=== PATIENT | male | born 1995 | race Caucasian/White ===

== ENCOUNTER 2018-08-11 12:00 | Emergency (ER) | payer OTHER ==
--- NOTE | 2018-08-11 12:24 | EDPHY ---
H & P Stated Complaint: Right testcular pain, radiating to lower abdomen Time Seen by Provider: 08/11/18 12:11 HPI/ROS: Chief Complaint: Testicle pain HPI: 23-year-old male's presenting with right testicle pain which began last night. He has noticed some moderate tenderness in the upper testicle. No swelling. No redness. He has had similar episodes in the past and was diagnosed with either hydrocele or varicocele, he cannot recall which. No swelling. No history of sexually transmitted infections in the past. Was tested for STIs 3 months ago was negative. No urethral discharge. No rash. No abdominal pain. No nausea or vomiting. Does state that he has been constipated and straining quite a bit lately. No new bumps or protrusions in his abdomen. No fevers or chills. No urinary urgency or frequency. ROS: 10 systems were reviewed and were negative except those elements noted in the HPI. PMH: Denies Social History: No smoking, no alcohol, no recreational drug use Family History: non-contributory Physical Exam: Gen: Awake, Alert, No Distress HEENT: Nose: no rhinorrhea Eyes: PERRLA, EOMI Mouth: Moist mucosa Neck: Supple, no JVD Chest: nontender, lungs clear to auscultation Heart: S1, S2 normal, no murmur Abd: Soft, non-tender, no guarding Genital: Normal uncircumcised male. Testes are distended. Normal lie, normal hemostatic. Mild epididymal tenderness. No hernias noted. No erythema. No swelling. Back: no CVA tenderness, no midline tenderness Ext: no edema, non-tender Skin: no rash Neuro: CN II-XII intact, Sensation grossly intact, Strength 5/5 in bilateral upper and lower extremities - Personal History Current Tetanus Diphtheria and Acellular Pertussis (TDAP): Yes - Medical/Surgical History Hx Asthma: No Hx Chronic Respiratory Disease: No Hx Diabetes: No Hx Cardiac Disease: No Hx Renal Disease: No Hx Cirrhosis: No Hx Alcoholism: No Hx HIV/AIDS: No Hx Splenectomy or Spleen Trauma: No Other PMH: Testicular swelling 2016. - Social History Smoking Status: Never smoked Constitutional: Initial Vital Signs Temperature (C) 36.5 C 08/11/18 12:01 Heart Rate 127 H 08/11/18 12:01 Respiratory Rate 16 08/11/18 12:01 Blood Pressure 119/86 H 08/11/18 12:01 O2 Sat (%) 97 08/11/18 12:01 O2 Delivery Mode Room Air Allergies/Adverse Reactions: No Known Allergies Allergy (Unverified 08/11/18 12:04) Home Medications: Medication Instructions Recorded NK [No Known Home Meds] 08/11/18 Medical Decision Making - Diagnostics Imaging Results: Imaging Impressions Testicular Ultrasound 08/11/18 12:21 Impression: Normal scrotal sonography. Results communicated to Dr. Muller at 1:34 PM. ED Course/Re-evaluation: Testicular ultrasound is normal. Patient has a benign exam. Symptoms likely consistent with muscle strain secondary to his constipation. Will discharge with follow up at [facility], return for any Departure - Departure Disposition: Home, Routine, Self-Care Clinical Impression: Groin pain Condition: Good Instructions: Groin Pain (ED) Additional Instructions: Take ibuprofen, 600 mg every 8 hr. You may alternate with acetaminophen, 1000 mg every 8 hr. Follow up with [facility] in 3-4 days if symptoms are not improving. Referrals: NILA Smith,. [Clinic] - As per Instructions
[2018-08-11 14:15] VITALS: BP 121/81
== END 2018-08-11 14:15 | disposition home or self-care (01) ==
DX: N50.811 Right testicular pain (principal)